=== PATIENT | female | born 1960 | race Caucasian/White ===

== ENCOUNTER 2017-11-04 23:25 | Emergency (ER) | payer OTHER ==
[~2017-11-04] VITALS: Ht 162.6 cm; Wt 77.1 kg
[2017-11-05] MEDS ORDERED: NS 1000ML 1,000 ML STA (00:32)
[2017-11-05] MEDS ORDERED: ZOFRAN IV STA (00:32)
--- NOTE | 2017-11-05 00:32 | ER.PDOC ---
General Chief Complaint: Nausea,Vomiting,Diarrhea Stated Complaint: VOMITING,DIARRHEA Time seen by MD: 00:25 Source: patient Exam Limitations: no limitations History of Present Illness Initial Comments Nausea, vomiting and diarrhea starting yesterday, today vomiting started, decreased UO Context: bad food Severity/Quality: severe Associated Symptoms (vomiting): freq vomitng Associated Symptoms (diarrhea): copious Allergies: Coded Allergies: Penicillins (Verified Allergy, Unknown, Rash, 11/05/17) Vital Signs First Vital Signs Date Time Temp Pulse Resp B/P (MAP) Pulse Ox O2 Delivery O2 Flow Rate FiO2 11/05/17 00:25 98.0 99 16 96 Room Air Last Vital Signs Date Time Temp Pulse Resp B/P (MAP) Pulse Ox O2 Delivery O2 Flow Rate FiO2 11/05/17 00:31 98.0 11/05/17 00:25 99 16 96 Room Air Constitutional: no symptoms reported EENTM: no symptoms reported Respiratory: no symptoms reported Cardiovascular: no symptoms reported Gastrointestinal: diarrhea, vomiting Genitourinary: no symptoms reported Musculoskeletal: no symptoms reported Skin: no symptoms reported Psychiatric/Neurological: no symptoms reported Endocrine: no symptoms reported Hematologic/Lymphatic: no symptoms reported Physical Exam General Appearance: No Apparent Distress, WD/WN HEENT: PERRL/EOMI, Normal ENT Inspection, TMs Normal, Pharynx Normal Neck: Non-Tender, Full Range of Motion, Supple, Normal Inspection Respiratory: chest non-tender, lungs clear, normal breath sounds, no respiratory distress, no accessory muscle use Cardiovascular: Normal Peripheral Pulses, Regular Rate, Rhythm, No Edema, No Gallop, No JVD, No Murmur Gastrointestinal: Non Tender, Hyperactive bowel sounds, Soft Back: Normal Inspection, No CVA Tenderness, No Vertebral Tenderness Extremities: Normal Range of Motion, Non-Tender, Normal Inspection, No Pedal Edema, No Calf Tenderness, Normal Capillary Refill, Pelvis Stable Neurologic/Psychiatric: drier II-XII NML as Tested, No Motor/Sensory Deficits, Alert, Normal Mood/Affect, Oriented x 3 Skin: Normal Color, Warm/Dry Lymphatic: No Adenopathy Results/Orders Results/Orders Laboratory Tests Test 11/05/17 00:07 11/05/17 00:38 Urine Collection Type UNKNOWN Urine Color YELLOW (YELLOW) Urine Appearance CLOUDY (CLEAR) Urine Bilirubin NEGATIVE MG/DL (NEGATIVE) Urine Ketones 50 mg/dL (NEGATIVE) Urine Specific [place] 1.025 (1.005-1.035) Urine pH 6 (5.0-6.0) Urine Protein 15 mg/dL (NEGATIVE) Urine Urobilinogen NORMAL (NEGATIVE) Urine Nitrate POSITIVE (NEGATIVE) Urine Leukocyte Esterase 100/ul 1+ (NEGATIVE) Urine Blood 150 3+ (NEGATIVE) Urine RBC 0-2 RBC/HPF (NONE SEEN) Urine WBC 10-25 WBC/HPF (0-2) Urine Squamous Epithelial Cells MODERATE #/HPF (FEW) Urine Bacteria MODERATE (NONE SEEN) Urine Hyaline Casts 0-1 (NONE SEEN) Urine Glucose NORMAL (NEGATIVE) White Blood Count 7.4 10^3/uL (4.5-11.0) Red Blood Count 4.63 10^6/uL (4.00-5.20) Hemoglobin 14.0 g/dL (12.0-15.0) Hematocrit 41.0 % (36.0-46.0) Mean Corpuscular Volume 88.6 fL (78-100) Mean Corpuscular Hemoglobin 30.2 pg (26-34) Mean Corpuscular Hemoglobin Concent 34.1 g/dL (33-37) Red Cell Distribution Width 14.2 % (11.5-14.5) Platelet Count 249 10^3/uL (150-400) Mean Platelet Volume 11.0 fL (7.8-11.0) Neutrophils (%) (Auto) 77.0 % (41.0-85.0) Lymphocytes (%) (Auto) 12.7 % (24.0-44.0) Monocytes (%) (Auto) 9.0 % (5.0-12.0) Neutrophils # (Auto) 5.7 10^3/uL (1.8-7.7) Lymphocytes # (Auto) 0.9 10^3/uL (1.0-4.8) Monocytes # (Auto) 0.7 10^3/uL (0.3-0.8) Absolute Immature Granulocyte (auto 0.04 10^3 u/L (0-2) Eosinophils % 0.5 % (0.0-5.0) Basophils % 0.3 % (0.0-0.2) Basophils # 0.0 10^3/uL (0.0-0.1) Eosinophil Count 0.0 10^3/uL (0.0-0.2) Sodium Level 136 mmol/L (132-145) Potassium Level 3.0 mmol/L (3.6-5.2) Chloride Level 100.0 mmol/L (96-109) Carbon Dioxide Level 23.7 mmol/L (20.0-32) Anion Gap 15.3 Blood Urea Nitrogen 16 mg/dL (7-18) Creatinine 1.10 mg/dL (0.59-1.40) Estimated GFR () 61.7 (>/=60) BUN/Creatinine Ratio 14.0 Glucose Level 124 mg/dL (70-110) Calcium Level 8.6 mg/dL (8.4-10.5) Total Bilirubin 1.3 mg/dL (0.2-1.0) Aspartate Amino Transf (AST/SGOT) 72 U/L (0-35) Alanine Aminotransferase (ALT/SGPT) 116 U/L (12-78) Alkaline Phosphatase 88 U/L (50-136) Total Protein 7.6 g/dL (6.4-8.2) Albumin 3.7 g/dL (3.4-5.0) Globulin 3.9 Percent Immature Gran (Cell Imm) 0.50 % (0.00-0.50) Administered Medications Medications (Trade) Dose Ordered Sig/Justino Route PRN Reason Start Time Stop Time Status Last Admin Dose Admin Sodium Chloride 1,000 ml @ 1,000 mls/hr Q1H STAT IV 11/05/17 00:32 11/05/17 01:31 11/05/17 00:52 Ondansetron HCl (Zofran) 4 mg STAT STAT IV 11/05/17 00:32 11/05/17 00:34 DC 11/05/17 00:52 Departure Time of Disposition: 01:22 Disposition: 01 HOME, SELF-CARE Impression: Primary Impression: Dehydration Additional Impressions: Urinary tract infection Nausea & vomiting Diarrhea Condition: Stable Patient Instructions: Dehydration, Adult, [id number], Diarrhea, Nausea and Vomiting, [id number] Referrals: PCP,UNKNOWN (PCP) PRIMARY CARE PROVIDER Duration or Time Spent with Pa: 20 NAILA WANG MD Nov 05, 2017 00:32
[2017-11-05 00:40] LABS: APPEARANCE,URINE CLOUDY (CLEAR); BILIRUBIN,URINE NEGATIVE (NEGATIVE); UA COLOR YELLOW (YELLOW); UROBILINOGEN,URINE NORMAL (NEGATIVE)
[2017-11-05 00:44] LABS: BASOPHIL % 0.3 % (0.0-0.2); EOSINOPHIL % 0.5 % (0.0-5.0); LYMPHOCYTES # 0.9 10^3/uL (1.0-4.8); LYMPHOCYTES % 12.7 % (24.0-44.0); MEAN CELL HGB 30.2 pg (26-34); MEAN CELL HGB CONCENTRATION 34.1 g/dL (33-37); MEAN CORP VOLUME 88.6 fL (78-100); MONOCYTES # 0.7 10^3/uL (0.3-0.8); NEUTROPHIL # 5.7 10^3/uL (1.8-7.7); RED CELL DISTRIBUTION WIDTH 14.2 % (11.5-14.5); WHITE BLOOD CELL 7.4 10^3/uL (4.5-11.0)
[2017-11-05] MEDS ORDERED: ZOFRAN ONE (00:44)
[2017-11-05] MEDS ORDERED: NS 1000ML 1,000 ML ONE (00:44)
[2017-11-05 01:04] LABS: CALCIUM 8.6 mg/dL (8.4-10.5); CARBON DIOXIDE 23.7 mmol/L (20.0-32)
[2017-11-05] MEDS ORDERED: POTASSIUM CHLORIDE PO STA (01:17)
[2017-11-05] MEDS ORDERED: CIPRO PO STA (01:20)
[2017-11-05] MEDS ORDERED: CIPRO ONE (01:26)
[2017-11-05] MEDS ORDERED: KLOR-CON 10 PO ONE (01:26)
[2017-11-05 01:30] VITALS: BP 127/63
[2017-11-05 01:36] VITALS: BP 121/84
== END 2017-11-05 01:30 | disposition home or self-care (01) ==
LOC: ER 23:25
DX: E86.0 Dehydration (principal); N39.0 Urinary tract infection, site not specified; Z88.0 Allergy status to penicillin
CPT/HCPCS: 36415; 80053; 81000; 85025; 87077; 87086; 87186; 96361; 96374; 99284; J2405; J3480; J7030